=== PATIENT | male | born 1975 | race Two or more races ===

== ENCOUNTER 2022-09-04 10:01 | Emergency (ER) | payer MEDICAID ==
[~2022-09-04] VITALS: Ht 180.3 cm; Wt 122.5 kg
--- NOTE | 2022-09-04 10:05 | NUR ---
RECEIVED PT 47 YRS MALE CAME FROM HOME C/O CHEST PAIN STRTED AT 04 AM TODAY WEEKHIM UP FOR CHEST PAIN EKG DONE AT BED SIDE
--- NOTE | 2022-09-04 10:15 | NUR ---
INSERTED ANGOCATHETER G 20 ON RT AC BLOOD DROW AND SENT TO LAB
--- NOTE | 2022-09-04 10:25 | NUR ---
SEEN BY DR. MCGEE
[2022-09-04 10:55] LABS: BASOPHILS # (AUTO) 0.1 K/uL (0.0-0.2); BASOPHILS % (AUTO) 0.8 % (0.0-2.0); HEMATOCRIT 45 % (39-51); HEMOGLOBIN 15.2 g/dL (13.5-17.5); LYMPHOCYTES # (AUTO) 2.2 K/uL (0.8-4.8); LYMPHOCYTES % (AUTO) 33.9 % (20.0-44.0); MEAN CORPUSCULAR HGB CONC 34 g/dl (31.0-36.0); MEAN CORPUSCULAR VOLUME 86 fL (80-96); MONOCYTES # (AUTO) 0.5 K/uL (0.1-1.30); MONOCYTES % (AUTO) 7.8 % (2.0-12.0); NEUTROPHILS # (AUTO) 3.6 K/uL (1.8-8.9); NEUTROPHILS % (AUTO) 54.5 % (43.0-81.0); PLATELET COUNT (AUTO) 260 K/uL (150-450); RED BLOOD CELL COUNT(AUTO) 5.21 MIL/uL (4.5-6.0); WHITE BLOOD COUNT (AUTO) 6.6 K/uL (4.3-11.0)
[2022-09-04 11:08] LABS: CARBON DIOXIDE 26 mmol/L (21-32); CHLORIDE 106 mmol/L (98-107); CREATININE 0.9 mg/dL (0.6-1.3); GLUCOSE 111 mg/dL (74-106); POTASSIUM 4.1 mmol/L (3.5-5.1); SODIUM SERUM 141 mmol/L (136-145); UREA NITROGEN, BLOOD 15 mg/dL (7-18)
--- NOTE | 2022-09-04 11:28 | NUR ---
C XRAY DONE AT BED SIDE
--- NOTE | 2022-09-04 12:00 | NUR ---
BLOOD DROW FOR REPEAT TROPONINE LEVEL
[2022-09-04] MEDS ORDERED: IBUP-1955 PO (12:49)
[2022-09-04] MEDS ORDERED: KETOROLAC TROMETHAMINE 15 MG/ML VIAL ONE (12:56)
[2022-09-04] MEDS ORDERED: KETOROLAC TROMETHAMINE INJ 30 MG/ML VIAL IV ONE (13:00)
--- NOTE | 2022-09-04 13:10 | NUR ---
DINESES CHEST PAIN OR SOB
--- NOTE | 2022-09-04 13:12 | NUR ---
IV removed. Catheter intact and site benign. Pressure and 4x4 applied to site. No bleeding noted.
--- NOTE | 2022-09-04 13:13 | NUR ---
Patient discharged to home in stable condition. Written and verbal after care instructions given. Patient verbalizes understanding of instruction.
[2022-09-04 13:31] VITALS: BP 124/86
== END 2022-09-04 13:32 | disposition home or self-care (01) ==
LOC: ER 10:07
DX: R07.89 Other chest pain (principal)
CPT/HCPCS: 99285; 96374; 71045; 93005 ×2; 85025; 80048; 36415; 84484 ×2; J1885